=== PATIENT | male | born 1995 | race Caucasian/White ===

== ENCOUNTER → 2017-11-21 11:50 | Outpatient (CLI) | payer OTHER, SELFPAY ==
[2017-11-21 12:34] LABS: Protein, Urine (Random) 564.8 mg/dL (<11.9); Protein:Creat Ratio 6113 mg/g CRE (0-200)
[2017-11-21 12:52] LABS: BUN 30 mg/dL (7-18); BUN/Creat Ratio 10.9 RATIO (10-20); Calcium,Total 8.8 mg/dL (8.5-10.1); Chloride 108 mmol/L (98-107); Creatinine, Serum 2.76 mg/dL (0.70-1.30); EST Glomerular Filtration Rate 30 mL/min (>60); Est Glom Filt Rate - Afr Amer 36 mL/min (>60); Glucose 87 mg/dL (70-110); Phosphorus 3.6 mg/dL (2.5-4.9); Potassium 4.1 mmol/L (3.5-5.1); Sodium Level 140 mmol/L (136-145)
== END ==
PROVIDERS: Family Provider Family Medicine; PCP Family Medicine; Visit Provider Internal Medicine Nephrology
DX: N18.3 Chronic kidney disease, stage 3 (moderate) (principal); R80.8 Other proteinuria
CPT/HCPCS: 36415; 80069; 82570; 84156

== ENCOUNTER → 2018-01-01 08:15 | Outpatient (CLI) | payer OTHER, SELFPAY ==
[2018-01-02 08:19] LABS: 24HR. UA Prot. Total Volume 2750 mL; 24HR. Urine Creatinine 1.89 g/24 HR (0.90-2.10); Urine Protein (24 Hour) 153.3 mg/dL (<11.9)
[2018-01-02 08:30] LABS: Hematocrit 40.7 % (40-54); Hemoglobin 13.6 g/dl (13.0-16.5); Mean Corp Hgb Conc 33.4 g/gl (32-36); Mean Corpuscular Hgb 27.1 pg (27.0-32.0); Mean Corpuscular Volume 81.1 fL (80-94); Mean Platelet Vol. 10.4 fl (6.2-12.0); Platelet Count 251 K/mm3 (150-450); RBC Distribution Width CV 13.1 % (11.6-14.6); RBC Distribution Width SD 38.1 fl (35.1-43.9); Red Blood Count 5.02 M/mm3 (4.6-6.2); Scan Indicated on CBC? Y/N NO; White Blood Count 5.8 K/mm3 (4.4-11.0)
[2018-01-02 08:34] LABS: Albumin, Serum 3.6 g/dL (3.2-5.0); BUN 53 mg/dL (7-18); BUN/Creat Ratio 21.9 RATIO (10-20); Calcium,Total 8.5 mg/dL (8.5-10.1); Chloride 113 mmol/L (98-107); Creatinine, Serum 2.42 mg/dL (0.70-1.30); EST Glomerular Filtration Rate 35 mL/min (>60); Est Glom Filt Rate - Afr Amer 42 mL/min (>60); Glucose 105 mg/dL (74-106); Phosphorus 3.7 mg/dL (2.5-4.9); Potassium 4.6 mmol/L (3.5-5.1); Sodium Level 142 mmol/L (136-145)
[2018-01-02 10:39] LABS: Vitamin D,25 Hydroxy 15.3 ng/mL (29.95-100.01)
== END ==
PROVIDERS: Family Provider Family Medicine; PCP Family Medicine; Visit Provider Internal Medicine Nephrology
DX: E55.9 Vitamin D deficiency, unspecified (principal); E11.22 Type 2 diabetes mellitus with diabetic chronic kidney disease; N18.3 Chronic kidney disease, stage 3 (moderate); E87.5 Hyperkalemia
CPT/HCPCS: 36415; 80069; 82306; 82570; 84156; 85027

== ENCOUNTER → 2018-04-27 11:46 | Outpatient (CLI) | payer OTHER, SELFPAY ==
[2018-04-27 12:48] LABS: Protein, Urine (Random) 111.7 mg/dL (<11.9); Protein:Creat Ratio 1371 mg/g CRE (0-200)
[2018-04-27 13:01] LABS: Albumin, Serum 3.8 g/dL (3.2-5.0); BUN 47 mg/dL (7-18); BUN/Creat Ratio 17.3 RATIO (10-20); Calcium,Total 9.6 mg/dL (8.5-10.1); Chloride 106 mmol/L (98-107); Creatinine, Serum 2.71 mg/dL (0.70-1.30); EST Glomerular Filtration Rate 31 mL/min (>60); Est Glom Filt Rate - Afr Amer 37 mL/min (>60); Glucose 85 mg/dL (74-106); Phosphorus 3.3 mg/dL (2.5-4.9); Potassium 5.9 mmol/L (3.5-5.1); Sodium Level 138 mmol/L (136-145)
== END ==
PROVIDERS: Family Provider Family Medicine; PCP Family Medicine; Visit Provider Internal Medicine Nephrology
DX: N18.3 Chronic kidney disease, stage 3 (moderate) (principal)
CPT/HCPCS: 36415; 80069; 82570; 84156

== ENCOUNTER → 2018-05-01 08:14 | Outpatient (CLI) | payer OTHER, SELFPAY ==
[2018-05-01 12:48] LABS: Albumin, Serum 3.6 g/dL (3.2-5.0); BUN 38 mg/dL (7-18); BUN/Creat Ratio 14.8 RATIO (10-20); Chloride 105 mmol/L (98-107); Creatinine, Serum 2.57 mg/dL (0.70-1.30); EST Glomerular Filtration Rate 33 mL/min (>60); Est Glom Filt Rate - Afr Amer 39 mL/min (>60); Glucose 84 mg/dL (74-106); Phosphorus 3.5 mg/dL (2.5-4.9); Potassium 4.4 mmol/L (3.5-5.1); Sodium Level 140 mmol/L (136-145)
== END ==
PROVIDERS: Visit Provider Internal Medicine Nephrology
DX: E87.5 Hyperkalemia (principal); N18.3 Chronic kidney disease, stage 3 (moderate)
CPT/HCPCS: 36415; 80069

== ENCOUNTER → 2018-05-01 09:29 | Outpatient (CLI) | payer OTHER, SELFPAY | PROVIDERS: Family Provider Family Medicine; PCP Family Medicine; Visit Provider Internal Medicine Nephrology | DX: N18.3 Chronic kidney disease, stage 3 (moderate) (principal); E87.5 Hyperkalemia ==

== ENCOUNTER → 2018-08-01 12:06 | Outpatient (CLI) | payer OTHER, SELFPAY ==
[2018-08-01 12:57] LABS: Albumin, Serum 3.8 g/dL (3.2-5.0); BUN 40 mg/dL (7-18); BUN/Creat Ratio 15.3 RATIO (10-20); Calcium,Total 9.2 mg/dL (8.5-10.1); Chloride 106 mmol/L (98-107); Creatinine, Serum 2.61 mg/dL (0.70-1.30); EST Glomerular Filtration Rate 32 mL/min (>60); Est Glom Filt Rate - Afr Amer 39 mL/min (>60); Glucose 90 mg/dL (74-106); Potassium 5.2 mmol/L (3.5-5.1); Sodium Level 139 mmol/L (136-145)
[2018-08-01 13:00] LABS: Protein, Urine (Random) 218.2 mg/dL (<11.9); Protein:Creat Ratio 2687 mg/g CRE (0-200)
== END ==
PROVIDERS: Family Provider Family Medicine; PCP Family Medicine; Visit Provider Internal Medicine Nephrology
DX: N18.3 Chronic kidney disease, stage 3 (moderate) (principal); R80.8 Other proteinuria
CPT/HCPCS: 36415; 80069; 82570; 84156

== ENCOUNTER → 2018-10-20 13:43 | Outpatient (CLI) | payer OTHER, SELFPAY ==
[2018-10-20 15:09] LABS: Albumin, Serum 3.5 g/dL (3.2-5.0); BUN 49 mg/dL (7-18); BUN/Creat Ratio 18.3 RATIO (10-20); Calcium,Total 8.7 mg/dL (8.5-10.1); Chloride 107 mmol/L (98-107); Creatinine, Serum 2.68 mg/dL (0.70-1.30); EST Glomerular Filtration Rate 31 mL/min (>60); Est Glom Filt Rate - Afr Amer 37 mL/min (>60); Glucose 95 mg/dL (74-106); Phosphorus 3.8 mg/dL (2.5-4.9); Potassium 4.5 mmol/L (3.5-5.1); Sodium Level 140 mmol/L (136-145)
[2018-10-20 15:21] LABS: Protein, Urine (Random) 156.8 mg/dL (<11.9); Protein:Creat Ratio 1882 mg/g CRE (0-200)
== END ==
PROVIDERS: Referring Provider Internal Medicine Nephrology; Visit Provider Internal Medicine Nephrology
DX: N18.3 Chronic kidney disease, stage 3 (moderate) (principal)
CPT/HCPCS: 36415; 80069; 82570; 84156

== ENCOUNTER → 2018-12-11 06:51 | Outpatient (CLI) | payer OTHER, SELFPAY ==
[2018-12-11 07:55] LABS: Protein, Urine (Random) 96.7 mg/dL (<11.9); Protein:Creat Ratio 1061 mg/g CRE (0-200)
[2018-12-11 08:05] LABS: Albumin, Serum 3.6 g/dL (3.2-5.0); BUN 45 mg/dL (7-18); BUN/Creat Ratio 17.8 RATIO (10-20); Calcium,Total 8.7 mg/dL (8.5-10.1); Chloride 109 mmol/L (98-107); Creatinine, Serum 2.53 mg/dL (0.70-1.30); EST Glomerular Filtration Rate 33 mL/min (>60); Est Glom Filt Rate - Afr Amer 40 mL/min (>60); Glucose 82 mg/dL (74-106); Sodium Level 137 mmol/L (136-145)
== END ==
PROVIDERS: Referring Provider Internal Medicine Nephrology; Visit Provider Internal Medicine Nephrology
DX: N18.3 Chronic kidney disease, stage 3 (moderate) (principal)
CPT/HCPCS: 36415; 80069; 82570; 84156

== ENCOUNTER → 2019-03-16 | Outpatient (CLI) | payer OTHER, SELFPAY ==
[2019-03-16 08:28] LABS: Protein, Urine (Random) 185.3 mg/dL (<11.9); Protein:Creat Ratio 2319 mg/g CRE (0-200)
[2019-03-16 08:41] LABS: Albumin, Serum 3.4 g/dL (3.2-5.0); BUN 51 mg/dL (7-18); BUN/Creat Ratio 19.1 RATIO (10-20); Calcium,Total 8.8 mg/dL (8.5-10.1); Chloride 112 mmol/L (98-107); Creatinine, Serum 2.67 mg/dL (0.70-1.30); EST Glomerular Filtration Rate 31 mL/min (>60); Est Glom Filt Rate - Afr Amer 37 mL/min (>60); Glucose 100 mg/dL (74-106); Phosphorus 4.3 mg/dL (2.5-4.9); Potassium 4.4 mmol/L (3.5-5.1); Sodium Level 141 mmol/L (136-145)
== END | disposition home or self-care (01) ==
PROVIDERS: Referring Provider Internal Medicine Nephrology; Visit Provider Internal Medicine Nephrology
DX: N18.3 Chronic kidney disease, stage 3 (moderate) (principal); R80.8 Other proteinuria
CPT/HCPCS: 36415; 80069; 82570; 84156

== ENCOUNTER → 2019-06-17 | Outpatient (CLI) | payer OTHER, SELFPAY ==
[2019-06-17 09:34] LABS: Albumin, Serum 3.6 g/dL (3.2-5.0); BUN 58 mg/dL (7-18); BUN/Creat Ratio 22.2 RATIO (10-20); Calcium,Total 9.1 mg/dL (8.5-10.1); Chloride 110 mmol/L (98-107); Creatinine, Serum 2.61 mg/dL (0.70-1.30); EST Glomerular Filtration Rate 32 mL/min (>60); Est Glom Filt Rate - Afr Amer 38 mL/min (>60); Glucose 93 mg/dL (74-106); Phosphorus 3.8 mg/dL (2.5-4.9); Potassium 4.9 mmol/L (3.5-5.1); Sodium Level 139 mmol/L (136-145)
[2019-06-17 09:37] LABS: Protein, Urine (Random) 96.5 mg/dL (<11.9); Protein:Creat Ratio 1327 mg/g CRE (0-200)
== END | disposition home or self-care (01) ==
LOC: LAB.FUTURE 09:01
PROVIDERS: Visit Provider Internal Medicine Nephrology
DX: N18.3 Chronic kidney disease, stage 3 (moderate) (principal); R80.8 Other proteinuria
CPT/HCPCS: 36415; 80069; 82570; 84156

== ENCOUNTER 2019-08-09 21:30 | Emergency (ER) | payer OTHER, SELFPAY ==
[2019-08-09 21:32] VITALS: BP 137/72; PULSE 89; RESP 18; TEMP 36.7; O2SAT 98; BMI 41.3
--- NOTE | 2019-08-09 22:24 | ED.VISSUMM ---
- ER Visit Summary Date of Service: 08/09/19 Chief Complaint: Back pain History of Present Illness: The patient is a [address] Sofía Martin. He reports that he has mid back pain that began approximately 1 week ago. Got worse at 530 this morning. Is a dull, constant pain 7 to 10 hours and 5-10 currently. Is worsened by movement or bending. Is relieved by remaining still and Tylenol. He denies any relation to his arms or his legs. No numbness or weakness in his arms or legs. No problems with his bowels or his bladder. No groin numbness. Patient denies any recent trauma. No fall, MVA, or change in activity. He denies any fever, dysuria, or IV drug abuse. Physical Examination: Vitals: Stable. Afebrile. General: Well-nourished and well-developed. Head: Normocephalic atraumatic. Neck: Supple, no lymphadenopathy. No JVD. Nontender. Cardiovascular: Regular rate and rhythm. No murmurs. Respiratory: No respiratory distress. Clear to auscultation bilaterally. Abdominal: Soft, nontender, nondistended, normal bowel sounds. No guarding, rebound, or peritoneal signs. Back: No vertebral tenderness palpation. Mild tenderness to palpation to the paraspinous posture in the intrascapular area. Extremities: Nontender, no edema. Skin: Normal color, no rash. Neurologic: Alert and oriented ?3. Cranial nerves II through XII are intact. Normal strength and sensation. Psych: Normal affect. Emergency Department Course and Treatment: Patient has a history of chronic renal insufficiency and NSAIDs cannot be used. He is given Tylenol p.o. He refused opiates. Treatment Plan: Patient be discharged prescription for Flexeril. Instructed use Tylenol for pain otherwise. Follow-up his primary care physician 1 week if not improving. Return to the emergency department for any worsening symptoms. Disposition: To home in improved and stable condition. Impression: 1. Back pain, acute. This note was generated with [employer] dictation software. It may contain incorrect words, spelling, and punctuation that were not noted in review of the chart prior to signing ED Disposition - Plan for ED Patient: Disposition: Home or Assisted Living Instructions: BACK PAIN (Acute or Chronic) Prescriptions: cycloBENZAPRine HCl [Flexeril] 10 mg PO TID PRN #20 tab PRN Reason: Muscle Spasm Prescription Printed Referrals: Sofía Martin DO [Primary Care Provider] - 1 Week if not improving
[2019-08-09] MEDS: Acetaminophen 325 MG Tablet 1000 MG PO (22:30)
[2019-08-09 22:38] VITALS: BP 132/71; PULSE 85; RESP 16; O2SAT 98
== END 2019-08-09 22:34 | disposition home or self-care (01) ==
PROVIDERS: Emergency Provider Emergency Medicine; Family Provider Internal Medicine Nephrology; PCP Internal Medicine Nephrology
DX: M54.9 Dorsalgia, unspecified (principal); N18.9 Chronic kidney disease, unspecified
CPT/HCPCS: 99283

== ENCOUNTER 2019-08-26 23:01 | Emergency (ER) | payer OTHER, SELFPAY ==
[2019-08-26 23:02] VITALS: BP 133/83; PULSE 112; RESP 22; TEMP 35.6; O2SAT 100; BMI 40.8
--- NOTE | 2019-08-26 23:13 | ED.DCSUM_ITS ---
- ER Visit Summary Date of Service: 08/26/19 Chief Complaint: Left upper quadrant abdominal pain History of Present Illness: The patient is a 24 M history of hypertension and chronic kidney disease. He is not on dialysis. Patient states around 10:00 tonight about an hour prior to arrival he started having left upper quadrant intermittent stabbing abdominal pain. He denies any nausea, vomiting or diarrhea. No fever or chills. He is urinating normally for him. He denies any melena or hematemesis. He denies any abdominal trauma. States he typically does not have pain like this. Physical Examination: Young male no acute distress vital signs are stable and afebrile. HEENT exam unremarkable. Moist with membranes. Tender no lymphadenopathy. Lungs clear to auscultation bilaterally. Heart regular rhythm rate about 100 no murmur. Abdomen is soft and nontender normal bowel sounds no peritoneal signs. He has no reproducible abdominal tenderness. The ribs on the left lower rib cage are nontender without signs of trauma. There is no epigastric pain. Both his right upper right lower quadrants are unremarkable. He has no peritoneal signs. No hernias. No masses. No signs of obstruction. Patient moving all 4 extremities. No edema. Back nontender. No CVA te nderness. Neurologically is awake and alert. Test Results: None Emergency Department Course and Treatment: Patient has a benign abdominal exam. He describes sharp stabbing left upper quadrant pain. There is no history of trauma. He does not need any imaging. We treated with GI cocktail and Protonix and reassess. Repeat exam at 00:01 AM patient is doing well. Abdomen is nontender. He was given GI cocktail and Protonix related but it is much with differential. He has been advised on activity that currently between his ribs 20 minutes a possibility but has had no trauma. It does not hurt to move. There is a 30 degrees. That was unlikely. Treatment Plan: Tylenol for pain. Follow-up as needed. Disposition: Discharge Impression: Left upper quadrant pain uncertain etiology History of chronic kidney disease and hypertension This note was generated with [employer] software. It may contain incorrect words, spelling, and punctuation that were not noted in review of the chart prior to signing ED Disposition - Plan for ED Patient: Disposition: Home or Assisted Living Instructions: ABDOMINAL PAIN, Unkown Cause, (Male) Referrals: Ta Workman MD [STAFF PHYSICIAN] - 1 Week Additional Instructions: Follow-up with a local primary care physician if not improving. Return to the ER if you develop a fever, increasing pain or black stool or throw up blood. Tylenol for pain. Follow-up if not improving.
[2019-08-26] MEDS: Mag Hydrox/Al Hydrox/Simeth 30 ML UDC PO (23:16)
--- NOTE | 2019-08-26 23:16 | ED.DEP ---
ED Disposition - Plan for ED Patient: Disposition: Home or Assisted Living Instructions: ABDOMINAL PAIN, Unkown Cause, (Male) Referrals: Ta Workman MD [STAFF PHYSICIAN] - 1 Week Additional Instructions: Follow-up with a local primary care physician if not improving. Return to the ER if you develop a fever, increasing pain or black stool or throw up blood. Tylenol for pain. Follow-up if not improving.
[2019-08-26] MEDS: Pantoprazole Sodium 40 MG Tablet PO (23:21)
[2019-08-27 00:08] VITALS: BP 131/73; PULSE 90; RESP 18; O2SAT 97
== END 2019-08-27 00:09 | disposition home or self-care (01) ==
PROVIDERS: Emergency Provider Emergency Medicine; Family Provider Internal Medicine Nephrology; PCP Internal Medicine Nephrology
DX: R10.12 Left upper quadrant pain (principal); I12.9 Hypertensive chronic kidney disease with stage 1 through stage 4 chronic kidney disease, or unspecified chronic kidney disease; N18.9 Chronic kidney disease, unspecified; Z87.442 Personal history of urinary calculi; Z79.899 Other long term (current) drug therapy
CPT/HCPCS: 99283

== ENCOUNTER 2019-08-27 16:40 | Emergency (ER) | payer OTHER, SELFPAY ==
[2019-08-26 23:02] VITALS: BMI 40.8
[2019-08-27 16:42] VITALS: BP 122/67; PULSE 99; RESP 19; TEMP 36.4; O2SAT 97; BMI 39.3
[2019-08-27 17:17] LABS: Bacteria 0 SEEN /hpf (None Seen); Mucous, Urine 0 SEEN /hpf (<or=2+); Red Blood Cells-Urine 0 SEEN /hpf (0-5); Squamous Epithelial Cells - UA 0 SEEN /hpf (0-5); White Blood Cells 0 SEEN /hpf (0-5)
[2019-08-27 17:28] LABS: Absolute Lymphocyte Count 1.59 X10^3/uL (0.83-4.51); Absolute Neutrophil Count 5.1 X10^3/uL (2.0-7.7); Basophil# 0.05 X10^3/uL; Basophil% 0.7 % (0-1); Eosinophils% 2.7 % (0-5); Hematocrit 40.7 % (40-54); Hemoglobin 13.1 g/dL (13.0-16.5); Lymphocyte # 1.59 X10^3/ul (4.0); Lymphocyte % 21.5 % (19-41); Mean Corp Hgb Conc 32.2 g/dL (32-36); Mean Corpuscular Volume 83.7 fL (80-94); Mean Platelet Vol. 9.7 fl (6.2-12.0); Monocyte# 0.47 X10^3/uL; Monocyte% 6.3 % (0-10); NRBC Flagged by Analyzer 0 % (0-5); Neutrophil # 5.06 X10^3/uL (2.7-7.7); Neutrophil % 68.3 % (47-70); Platelet Count 254 K/mm3 (150-450); RBC Distribution Width CV 12.7 % (11.6-14.6); RBC Distribution Width SD 38.7 fl (35.1-43.9); Red Blood Count 4.86 M/mm3 (4.6-6.2); White Blood Count 7.4 K/mm3 (4.4-11.0)
[2019-08-27 17:32] LABS: Color, Urine Yellow (Yellow); Glucose, Dipstick Normal (Normal); Ketone-Dipstick Negative (Negative); Leukocyte Esterase-Dipstick Negative /ul (Negative); Nitrite-Dipstick Negative (Negative); Occult Blood-Urine Negative /ul (Negative); Protein-Dipstick 100 mg/dl (Negative); Urine Bilirubin Dipstick Negative (Negative); Urine Clarity Clear (Clear); Urine Urobilinogen Normal (Normal)
[2019-08-27 17:40] LABS: Anion Gap 5 (5-15); BUN 50 mg/dL (7-18); BUN/Creat Ratio 18.9 RATIO (10-20); Calcium,Total 9.1 mg/dL (8.5-10.1); Chloride 112 mmol/L (98-107); Creatinine, Serum 2.64 mg/dL (0.70-1.30); EST Glomerular Filtration Rate 31 mL/min (>60); Est Glom Filt Rate - Afr Amer 38 mL/min (>60); Estimated Creatinine Clearance 43.78 ml/min; Glucose 98 mg/dL (74-106); Potassium 4.9 mmol/L (3.5-5.1); Sodium Level 138 mmol/L (136-145)
--- NOTE | 2019-08-27 17:46 | ED.VISSUMM ---
- ER Visit Summary Date of Service: 08/27/19 Chief Complaint: Left upper quadrant abdominal pain History of Present Illness: The patient is a 24 M who presents with left upper quadrant abdominal pain that began yesterday. Patient states the pain got better last night but then became worse again today. Patient states his pain is a constant ache but is sharp and stabbing with deep breathing and with movement. Patient denies any nausea or vomiting. Patient denies any diarrhea, melena, or hematochezia. Patient denies any urinary complaints. Patient states the pain is over the left upper quadrant and left lower chest area. Physical Examination: Vital signs are stable. Patient is afebrile. Patient is in no acute distress. Oral mucosa is pink and moist. Neck is supple. Trachea is midline. There is no JVD. Heart was regular rate and rhythm. Lungs are clear and equal bilaterally. Abdomen is soft. Bowel sounds are normal. There is mild left upper quadrant tenderness. There is also tenderness along the left costal margin. There is no bony crepitance or step-off. There is no rebound or guarding noted. Cranial nerves II through XII are intact. There are no focal motor or sensory deficits noted. Test Results: CBC was normal. Basic metabolic profile showed a slightly increased creatinine of 2.64. Urinalysis was normal. D-dimer was normal. Emergency Department Course and Treatment: Patient is feeling better on reevaluation. Patient was advised of his results. Patient was instructed to take Tylenol as needed for pain. Patient was instructed to return if worse in any way. Patient understood and was agreeable with the plan. All questions were answered. Disposition: Discharge home Impression: Left upper quadrant abdominal pain This note was generated with [employer] dictation software. It may contain incorrect words, spelling, and punctuation that were not noted in review of the chart prior to signing ED Disposition - Plan for ED Patient: Disposition: Home or Assisted Living Diagnosis: Left upper quadrant abdominal pain of unknown etiology Instructions: ABDOMINAL PAIN, Unkown Cause, (Male) Referrals: Sofía Martin DO [Primary Care Provider] - 5-7 Days
[2019-08-27] MEDS: 0.9% Normal Saline 1,000 ML 1000 ML IV (17:52)
[2019-08-27 18:32] LABS: D-Dimer Quantitative (DVT/PE) 0.49 FEU/ug/m (0.27-0.49)
[2019-08-27 18:41] LABS: ALB/GLOB Ratio 0.9 RATIO (0.9-2.4); AST(SGOT) 16 U/L (15-37); Alanine Aminotransfer ALT/SGPT 28 U/L (16-61); Albumin, Serum 3.7 g/dL (3.2-5.0); Alkaline Phosphatase 70 U/L (45-117); Globulin 4.1 g/dL (2.2-4.2); Protein, Total 7.8 g/dL (6.4-8.2)
[2019-08-27 19:02] VITALS: RESP 16; O2SAT 98
[2019-08-27 20:37] VITALS: BP 128/79; PULSE 78; RESP 14; O2SAT 100
== END 2019-08-27 20:39 | disposition home or self-care (01) ==
PROVIDERS: Emergency Provider Emergency Medicine; Family Provider Internal Medicine Nephrology; PCP Internal Medicine Nephrology
DX: R10.12 Left upper quadrant pain (principal); M54.9 Dorsalgia, unspecified; G89.29 Other chronic pain; I10 Essential (primary) hypertension; Z79.899 Other long term (current) drug therapy
CPT/HCPCS: 80053; 81001; 85025; 85379; 96360; 99283; J7030; A4216

== ENCOUNTER → 2019-11-20 07:16 | Outpatient (CLI) | payer OTHER, SELFPAY ==
[2019-11-20 08:36] LABS: Protein, Urine (Random) 64.2 mg/dL (<11.9); Protein:Creat Ratio 1749 mg/g CRE (0-200)
[2019-11-20 09:08] LABS: Albumin, Serum 3.9 g/dL (3.2-5.0); BUN 63 mg/dL (7-18); BUN/Creat Ratio 24.6 RATIO (10-20); Calcium,Total 8.9 mg/dL (8.5-10.1); Chloride 110 mmol/L (98-107); Creatinine, Serum 2.56 mg/dL (0.70-1.30); EST Glomerular Filtration Rate 32 mL/min (>60); Est Glom Filt Rate - Afr Amer 39 mL/min (>60); Glucose 80 mg/dL (74-106); Phosphorus 4.7 mg/dL (2.5-4.9); Potassium 4.9 mmol/L (3.5-5.1); Sodium Level 136 mmol/L (136-145)
== END ==
LOC: LAB.FUTURE 07:20 → LAB 07:22
PROVIDERS: Referring Provider Internal Medicine Nephrology; Visit Provider Internal Medicine Nephrology
DX: N18.3 Chronic kidney disease, stage 3 (moderate) (principal)
CPT/HCPCS: 36415; 80069; 82570; 84156

== ENCOUNTER → 2020-01-31 06:49 | Outpatient (CLI) | payer OTHER, SELFPAY ==
[2020-01-31 08:02] LABS: BUN 67 mg/dL (7-18); BUN/Creat Ratio 25.2 RATIO (10-20); Calcium,Total 8.9 mg/dL (8.5-10.1); Chloride 104 mmol/L (98-107); Creatinine, Serum 2.66 mg/dL (0.70-1.30); EST Glomerular Filtration Rate 31 mL/min (>60); Est Glom Filt Rate - Afr Amer 37 mL/min (>60); Glucose 75 mg/dL (74-106); Phosphorus 4.6 mg/dL (2.5-4.9); Potassium 4.7 mmol/L (3.5-5.1); Sodium Level 133 mmol/L (136-145)
[2020-01-31 08:10] LABS: Protein, Urine (Random) 26.7 mg/dL (<11.9); Protein:Creat Ratio 1176 mg/g CRE (0-200)
== END ==
PROVIDERS: Referring Provider Internal Medicine Nephrology; Visit Provider Internal Medicine Nephrology
DX: N18.3 Chronic kidney disease, stage 3 (moderate) (principal); R80.8 Other proteinuria
CPT/HCPCS: 36415; 80069; 82570; 84156

== ENCOUNTER → 2020-04-29 07:03 | Outpatient (CLI) | payer OTHER, SELFPAY ==
[2020-04-29 07:42] LABS: Protein, Urine (Random) 72.8 mg/dL (<11.9); Protein:Creat Ratio 2638 mg/g CRE (0-200)
[2020-04-29 07:43] LABS: Albumin, Serum 3.6 g/dL (3.2-5.0); BUN 43 mg/dL (7-18); BUN/Creat Ratio 18.9 RATIO (10-20); Calcium,Total 8.2 mg/dL (8.5-10.1); Chloride 107 mmol/L (98-107); Creatinine, Serum 2.27 mg/dL (0.70-1.30); EST Glomerular Filtration Rate 37 mL/min (>60); Est Glom Filt Rate - Afr Amer 45 mL/min (>60); Glucose 107 mg/dL (74-106); Phosphorus 4.5 mg/dL (2.5-4.9); Potassium 4.4 mmol/L (3.5-5.1); Sodium Level 136 mmol/L (136-145)
== END ==
PROVIDERS: Referring Provider Internal Medicine Nephrology; Visit Provider Internal Medicine Nephrology
DX: N18.3 Chronic kidney disease, stage 3 (moderate) (principal); R80.8 Other proteinuria
CPT/HCPCS: 36415; 80069; 82570; 84156

== ENCOUNTER → 2020-06-04 09:24 | Outpatient (CLI) | payer OTHER, SELFPAY ==
[2020-06-04 11:14] LABS: Albumin, Serum 3.7 g/dL (3.2-5.0); BUN 42 mg/dL (7-18); BUN/Creat Ratio 17.3 RATIO (10-20); Calcium,Total 9.1 mg/dL (8.5-10.1); Chloride 108 mmol/L (98-107); Creatinine, Serum 2.43 mg/dL (0.70-1.30); EST Glomerular Filtration Rate 34 mL/min (>60); Est Glom Filt Rate - Afr Amer 41 mL/min (>60); Glucose 69 mg/dL (74-106); Phosphorus 4.7 mg/dL (2.5-4.9); Potassium 4.7 mmol/L (3.5-5.1); Sodium Level 139 mmol/L (136-145)
[2020-06-04 11:24] LABS: Vitamin D,25 Hydroxy 21.4 ng/mL
[2020-06-04 12:57] LABS: Protein, Urine (Random) 154.3 mg/dL (<11.9)
== END ==
PROVIDERS: Visit Provider Internal Medicine Nephrology
DX: E83.51 Hypocalcemia (principal); E55.9 Vitamin D deficiency, unspecified; N18.3 Chronic kidney disease, stage 3 (moderate); R80.8 Other proteinuria
CPT/HCPCS: 36415; 80069; 82306; 82570; 83970; 84156

== ENCOUNTER → 2020-12-27 11:44 | Outpatient (CLI) | payer OTHER, SELFPAY ==
[2020-12-27 12:12] LABS: Protein, Urine (Random) 135.6 mg/dL (<11.9); Protein:Creat Ratio 3161 mg/g CRE (0-200)
[2020-12-27 12:30] LABS: Albumin, Serum 3.5 g/dL (3.2-5.0); BUN 49 mg/dL (7-18); BUN/Creat Ratio 17.9 RATIO (10-20); Calcium,Total 8.8 mg/dL (8.5-10.1); Chloride 108 mmol/L (98-107); Creatinine, Serum 2.74 mg/dL (0.70-1.30); EST Glomerular Filtration Rate 30 mL/min (>60); Est Glom Filt Rate - Afr Amer 36 mL/min (>60); Glucose 67 mg/dL (74-106); Phosphorus 4.1 mg/dL (2.5-4.9); Potassium 4.4 mmol/L (3.5-5.1); Sodium Level 137 mmol/L (136-145)
== END ==
PROVIDERS: Referring Provider Internal Medicine Nephrology; Visit Provider Internal Medicine Nephrology
DX: N18.30 Chronic kidney disease, stage 3 unspecified (principal); R80.8 Other proteinuria
CPT/HCPCS: 36415; 80069; 82570; 84156

== ENCOUNTER → 2021-04-14 14:14 | Outpatient (CLI) | payer OTHER, SELFPAY ==
[2021-04-14 18:13] LABS: Anion Gap 8 (5-15); BUN 63 mg/dL (7-18); BUN/Creat Ratio 23.6 RATIO (10-20); Calcium,Total 8.5 mg/dL (8.5-10.1); Chloride 107 mmol/L (98-107); Creatinine, Serum 2.67 mg/dL (0.70-1.30); EST Glomerular Filtration Rate 30 mL/min (>60); Est Glom Filt Rate - Afr Amer 37 mL/min (>60); Glucose 88 mg/dL (74-106); Potassium 4.4 mmol/L (3.5-5.1); Sodium Level 134 mmol/L (136-145)
[2021-04-14 18:16] LABS: Protein, Urine (Random) 36.7 mg/dL (<11.9); Protein:Creat Ratio 1549 mg/g CRE (0-200)
== END ==
PROVIDERS: Referring Provider Internal Medicine Nephrology; Visit Provider Internal Medicine Nephrology
DX: N17.9 Acute kidney failure, unspecified (principal); R80.8 Other proteinuria
CPT/HCPCS: 36415; 80048; 82570; 84156

== ENCOUNTER → 2021-08-27 09:33 | Outpatient (CLI) | payer OTHER, SELFPAY ==
[2021-08-27 12:45] LABS: Albumin, Serum 2.9 g/dL (3.2-5.0); BUN 40 mg/dL (7-18); BUN/Creat Ratio 15.2 RATIO (10-20); Calcium,Total 9.4 mg/dL (8.5-10.1); Chloride 105 mmol/L (98-107); Creatinine, Serum 2.64 mg/dL (0.70-1.30); EST Glomerular Filtration Rate 31 mL/min (>60); Est Glom Filt Rate - Afr Amer 37 mL/min (>60); Glucose 96 mg/dL (74-106); Phosphorus 3.5 mg/dL (2.5-4.9); Potassium 4.5 mmol/L (3.5-5.1); Sodium Level 136 mmol/L (136-145)
[2021-08-27 13:03] LABS: Protein, Urine (Random) 229.9 mg/dL (<11.9); Protein:Creat Ratio 6494 mg/g CRE (0-200)
== END ==
PROVIDERS: Visit Provider Internal Medicine Nephrology
DX: N18.32 Chronic kidney disease, stage 3b (principal); R80.8 Other proteinuria
CPT/HCPCS: 36415; 80053; 80061; 80069; 82570; 83880; 84156; 84443

== ENCOUNTER 2022-02-28 18:39 | Outpatient (CLI) | payer OTHER, SELFPAY ==
[2022-02-28 18:56] LABS: Creat.Clear Total Volume 4900 mL
[2022-02-28 19:10] LABS: Albumin, Serum 3.3 g/dL (3.2-5.0); BUN 57 mg/dL (7-18); BUN/Creat Ratio 18.1 RATIO (10-20); Calcium,Total 9.2 mg/dL (8.5-10.1); Chloride 107 mmol/L (98-107); Creatinine, Serum 3.15 mg/dL (0.70-1.30); EST Glomerular Filtration Rate 25 mL/min (>60); Est Glom Filt Rate - Afr Amer 30 mL/min (>60); Glucose 111 mg/dL (74-106); Phosphorus 4.1 mg/dL (2.5-4.9); Potassium 4.9 mmol/L (3.5-5.1); Sodium Level 136 mmol/L (136-145)
[2022-02-28 19:14] LABS: 24HR. UA Prot. Total Volume 4900 mL; Protein, Urine (Random) 245.7 mg/dL (<11.9); Protein:Creat Ratio 3597 mg/g CRE (0-200); Urine Protein (24 Hour) 245.7 mg/dL (<11.9)
[2022-02-28 19:56] LABS: Creatinine Clearance 41 ml/min (100-200); Creatinine Serum Creat 3.2 mg/dL (0.8-1.3); Creatinine Urine 38.3 mg/dL (NO RANGE EST.); EST Glomerular Filtration Rate 25 mL/min (>60); Est Glom Filt Rate - Afr Amer 30 mL/min (>60)
== END 2022-02-28 23:59 | disposition home or self-care (01) ==
LOC: LAB 18:39
PROVIDERS: Referring Provider Internal Medicine Nephrology; Visit Provider Internal Medicine Nephrology
DX: N18.32 Chronic kidney disease, stage 3b (principal); R80.8 Other proteinuria
CPT/HCPCS: 80069; 81050; 82570; 82575; 84156

== ENCOUNTER → 2022-07-03 | Outpatient (CLI) | payer OTHER, SELFPAY ==
[2022-07-03 10:47] LABS: Anion Gap 6 (5-15); BUN 44 mg/dL (7-18); BUN/Creat Ratio 14.8 RATIO (10-20); Calcium,Total 9.4 mg/dL (8.5-10.1); Chloride 110 mmol/L (98-107); Creatinine, Serum 2.98 mg/dL (0.70-1.30); EST Glomerular Filtration Rate 27 mL/min (>60); Est Glom Filt Rate - Afr Amer 32 mL/min (>60); Glucose 99 mg/dL (74-106); Sodium Level 139 mmol/L (136-145)
== END | disposition home or self-care (01) ==
PROVIDERS: Referring Provider Internal Medicine Nephrology; Visit Provider Internal Medicine Nephrology
DX: R80.8 Other proteinuria (principal)
CPT/HCPCS: 36415; 80048

== ENCOUNTER → 2022-07-28 | Outpatient (CLI) | payer OTHER, SELFPAY | END | disposition home or self-care (01) | LOC: LAB.FUTURE 12:10 | PROVIDERS: Visit Provider Internal Medicine Nephrology | DX: N18.32 Chronic kidney disease, stage 3b (principal); R80.8 Other proteinuria ==

== ENCOUNTER → 2023-01-13 | Outpatient (CLI) | payer OTHER, SELFPAY ==
[2023-01-13 13:23] LABS: Albumin, Serum 3.7 g/dL (3.2-5.0); BUN 64 mg/dL (7-18); BUN/Creat Ratio 19.6 RATIO (10-20); Calcium,Total 9.4 mg/dL (8.5-10.1); Chloride 111 mmol/L (98-107); Creatinine, Serum 3.27 mg/dL (0.70-1.30); EST Glomerular Filtration Rate 24 mL/min (>60); Est Glom Filt Rate - Afr Amer 29 mL/min (>60); Glucose 91 mg/dL (74-106); Phosphorus 3.7 mg/dL (2.5-4.9); Sodium Level 139 mmol/L (136-145)
[2023-01-13 14:09] LABS: Protein, Urine (Random) 154.2 mg/dL (<11.9); Protein:Creat Ratio 2631 mg/g CRE (0-200)
== END | disposition home or self-care (01) ==
LOC: POLAB3 11:36
PROVIDERS: Visit Provider Internal Medicine Nephrology
DX: N18.32 Chronic kidney disease, stage 3b (principal); R80.8 Other proteinuria
CPT/HCPCS: 36415; 80069; 82570; 84156

== ENCOUNTER → 2023-05-14 | Outpatient (CLI) | payer OTHER, SELFPAY ==
[2023-05-14 11:06] LABS: Protein, Urine (Random) 189.1 mg/dL (<11.9); Protein:Creat Ratio 4612 mg/g CRE (0-200)
[2023-05-14 11:19] LABS: Albumin, Serum 3.3 g/dL (3.2-5.0); BUN 46 mg/dL (7-18); BUN/Creat Ratio 13.1 RATIO (10-20); Calcium,Total 9.2 mg/dL (8.5-10.1); Chloride 109 mmol/L (98-107); Creatinine, Serum 3.51 mg/dL (0.70-1.30); EST Glomerular Filtration Rate 22 mL/min (>60); Est Glom Filt Rate - Afr Amer 27 mL/min (>60); Glucose 96 mg/dL (74-106); Phosphorus 3.5 mg/dL (2.5-4.9); Sodium Level 136 mmol/L (136-145)
== END | disposition home or self-care (01) ==
PROVIDERS: Referring Provider Internal Medicine Nephrology; Visit Provider Internal Medicine Nephrology
DX: R80.8 Other proteinuria (principal); N18.32 Chronic kidney disease, stage 3b
CPT/HCPCS: 36415; 80069; 82570; 84156

== ENCOUNTER → 2023-06-11 | Outpatient (CLI) | payer OTHER, SELFPAY ==
[2023-06-11 20:32] LABS: Albumin, Serum 3.9 g/dL (3.2-5.0); BUN 48 mg/dL (7-18); BUN/Creat Ratio 14.7 RATIO (10-20); Calcium,Total 9.3 mg/dL (8.5-10.1); Chloride 110 mmol/L (98-107); Creatinine, Serum 3.27 mg/dL (0.70-1.30); EST Glomerular Filtration Rate 24 mL/min (>60); Est Glom Filt Rate - Afr Amer 29 mL/min (>60); Glucose 91 mg/dL (74-106); Phosphorus 4.5 mg/dL (2.5-4.9); Potassium 4.4 mmol/L (3.5-5.1); Sodium Level 136 mmol/L (136-145)
[2023-06-11 21:15] LABS: Creat.Clear Total Volume 5300 mL; Creatinine Clearance 38 ml/min (100-200); Creatinine Serum Creat 3.3 mg/dL (0.8-1.3); EST Glomerular Filtration Rate 24 mL/min (>60); Est Glom Filt Rate - Afr Amer 29 mL/min (>60); Urine Protein (24 Hour) 85.9 mg/dL (<11.9)
[2023-06-11 21:42] LABS: 24HR. UA Prot. Total Volume 5300 mL
== END | disposition home or self-care (01) ==
PROVIDERS: Visit Provider Internal Medicine Nephrology
DX: N18.4 Chronic kidney disease, stage 4 (severe) (principal)
CPT/HCPCS: 36415; 80069; 81050; 82575; 84156

== ENCOUNTER → 2023-10-01 | Outpatient (CLI) | payer OTHER, SELFPAY ==
[2023-10-01 10:41] LABS: Hematocrit 39.1 % (40-54); Hemoglobin 12.8 g/dL (13.0-16.5); Mean Corp Hgb Conc 32.7 g/dL (32-36); Mean Corpuscular Hgb 27.2 pg (27.0-32.0); Mean Corpuscular Volume 83.2 fL (80-94); Mean Platelet Vol. 9.4 fl (6.2-12.0); Platelet Count 268 K/mm3 (150-450); RBC Distribution Width CV 12.7 % (11.6-14.6); RBC Distribution Width SD 38.4 fl (35.1-43.9); White Blood Count 6.4 K/mm3 (4.4-11.0)
[2023-10-01 10:59] LABS: Protein:Creat Ratio 4396 mg/g CRE (0-200)
[2023-10-01 11:10] LABS: Albumin, Serum 3.4 g/dL (3.2-5.0); BUN 52 mg/dL (7-18); BUN/Creat Ratio 13.1 RATIO (10-20); Calcium,Total 9.2 mg/dL (8.5-10.1); Chloride 109 mmol/L (98-107); Creatinine, Serum 3.96 mg/dL (0.70-1.30); EST Glomerular Filtration Rate 19 mL/min (>60); Est Glom Filt Rate - Afr Amer 23 mL/min (>60); Glucose 92 mg/dL (74-106); Phosphorus 3.9 mg/dL (2.5-4.9); Potassium 4.9 mmol/L (3.5-5.1); Sodium Level 137 mmol/L (136-145)
[2023-10-03 08:49] LABS: PTHIN 115.3 pg/mL (18.4-80.1)
== END | disposition home or self-care (01) ==
LOC: LAB 10:13
PROVIDERS: Referring Provider Internal Medicine Nephrology; Visit Provider Internal Medicine Nephrology
DX: N18.4 Chronic kidney disease, stage 4 (severe) (principal); N26.9 Renal sclerosis, unspecified
CPT/HCPCS: 36415; 80069; 82570; 83970; 84156; 85027

== ENCOUNTER → 2024-06-30 | Outpatient (CLI) | payer OTHER, SELFPAY ==
[2024-06-30 10:18] LABS: Hematocrit 34.2 % (40-54); Hemoglobin 10.8 g/dL (13.0-16.5); Mean Corp Hgb Conc 31.6 g/dL (32-36); Mean Corpuscular Hgb 26.6 pg (27.0-32.0); Mean Corpuscular Volume 84.2 fL (80-94); Mean Platelet Vol. 9.6 fl (6.2-12.0); Platelet Count 266 K/mm3 (150-450); RBC Distribution Width CV 12.9 % (11.6-14.6); RBC Distribution Width SD 39.7 fl (35.1-43.9); Red Blood Count 4.06 M/mm3 (4.6-6.2); White Blood Count 8.3 K/mm3 (4.4-11.0)
[2024-06-30 10:40] LABS: Protein, Urine (Random) 129.9 mg/dL (<11.9); Protein:Creat Ratio 4177 mg/g CRE (0-200)
[2024-06-30 10:50] LABS: Albumin, Serum 3.6 g/dL (3.2-5.0); BUN 55 mg/dL (7-18); BUN/Creat Ratio 15.7 RATIO (10-20); Calcium,Total 9.2 mg/dL (8.5-10.1); Chloride 109 mmol/L (98-107); Creatinine, Serum 3.51 mg/dL (0.70-1.30); EST Glomerular Filtration Rate 22 mL/min (>60); Est Glom Filt Rate - Afr Amer 26 mL/min (>60); Glucose 95 mg/dL (74-106); Phosphorus 3.3 mg/dL (2.5-4.9); Potassium 5.1 mmol/L (3.5-5.1); Sodium Level 134 mmol/L (136-145)
[2024-07-02 08:10] LABS: PTHIN 139.4 pg/mL (18.4-80.1)
== END | disposition home or self-care (01) ==
LOC: LAB 09:54
PROVIDERS: Referring Provider Internal Medicine Nephrology; Visit Provider Internal Medicine Nephrology
DX: N18.4 Chronic kidney disease, stage 4 (severe) (principal); R80.8 Other proteinuria; N25.81 Secondary hyperparathyroidism of renal origin
CPT/HCPCS: 36415; 80069; 82570; 83970; 84156; 85027

== ENCOUNTER → 2024-11-26 | Outpatient (CLI) | payer OTHER, SELFPAY ==
[2024-11-26 12:09] LABS: Anion Gap 6 (5-15); BUN 51 mg/dL (7-18); BUN/Creat Ratio 12.9 RATIO (10-20); Chloride 111 mmol/L (98-107); Creatinine, Serum 3.96 mg/dL (0.70-1.30); EST Glomerular Filtration Rate 19 mL/min (>60); Est Glom Filt Rate - Afr Amer 23 mL/min (>60); Glucose 102 mg/dL (74-106); Potassium 5.1 mmol/L (3.5-5.1); Sodium Level 139 mmol/L (136-145)
== END | disposition home or self-care (01) ==
LOC: LAB 10:58
PROVIDERS: Referring Provider Internal Medicine Nephrology; Visit Provider Internal Medicine Nephrology
DX: N26.9 Renal sclerosis, unspecified (principal)
CPT/HCPCS: 36415; 80048

== ENCOUNTER → 2024-12-13 | Outpatient (CLI) | payer OTHER, SELFPAY ==
[2024-12-13 10:53] LABS: Hematocrit 34.6 % (40-54); Hemoglobin 10.9 g/dL (13.0-16.5); Mean Corp Hgb Conc 31.5 g/dL (32-36); Mean Corpuscular Volume 82.4 fL (80-94); Platelet Count 268 K/mm3 (150-450); RBC Distribution Width CV 13.2 % (11.6-14.6); RBC Distribution Width SD 39.8 fl (35.1-43.9); White Blood Count 7.7 K/mm3 (4.4-11.0)
[2024-12-13 11:02] LABS: Protein:Creat Ratio 5917 mg/g CRE (0-200)
[2024-12-13 11:21] LABS: Ferritin 57 ng/mL (26-388); Iron 45 ug/dL (65-175); Iron Binding Capacity,Total 292 ug/dL (250-450); PERCENT IRON SATURATION 15.4 % (15.0-55.0)
[2024-12-13 11:26] LABS: PTHIN 308.3 pg/mL (18.4-80.1)
== END | disposition home or self-care (01) ==
PROVIDERS: Referring Provider Internal Medicine Nephrology; Visit Provider Internal Medicine Nephrology
DX: N18.4 Chronic kidney disease, stage 4 (severe) (principal); D64.9 Anemia, unspecified; N26.9 Renal sclerosis, unspecified
CPT/HCPCS: 36415; 82570; 82728; 83540; 83550; 83970; 84156; 85027

== ENCOUNTER → 2025-08-26 | Outpatient (CLI) | payer OTHER, SELFPAY ==
[2025-08-26 14:06] LABS: Hematocrit 34.2 % (40-54); Hemoglobin 11.0 g/dL (13.0-16.5); Mean Corp Hgb Conc 32.2 g/dL (32-36); Mean Corpuscular Volume 83.4 fL (80-94); Mean Platelet Vol. 9.9 fl (6.2-12.0); Platelet Count 269 K/mm3 (150-450); RBC Distribution Width CV 13.2 % (11.6-14.6); RBC Distribution Width SD 40.7 fl (35.1-43.9); Red Blood Count 4.10 M/mm3 (4.6-6.2); White Blood Count 9.5 K/mm3 (4.4-11.0)
[2025-08-26 14:28] LABS: Creatinine, Urine (random) 33.00 mg/dL (39.00-259.00); Protein, Urine (Random) 109.0 mg/dL (0.0-12.0); Protein:Creat Ratio 3303 mg/g CRE (0-200)
[2025-08-26 14:30] LABS: Albumin, Serum 4.1 g/dL (3.5-5.0); Anion Gap 12 (5-15); BUN 58 mg/dL (4-19); BUN/Creat Ratio 13.5 RATIO (10-20); Calcium,Total 9.0 mg/dL (7.6-11.0); Carbon Dioxide 17.9 mmol/L (21.0-32.0); Chloride 104 mmol/L (98-108); Glucose 86 mg/dL (70-99); Potassium 5.1 mmol/L (3.3-5.1)
[2025-08-26 15:17] LABS: PTHIN 197 pg/mL (11-61)
[2025-08-26 21:24] LABS: Xtra Tube Kwok EXTRA TUBE
== END | disposition home or self-care (01) ==
LOC: POLAB3 13:23
PROVIDERS: Visit Provider Internal Medicine Nephrology
DX: N18.4 Chronic kidney disease, stage 4 (severe) (principal); D64.9 Anemia, unspecified; N26.9 Renal sclerosis, unspecified
CPT/HCPCS: 36415; 80069; 82570; 83970; 84156; 85027